=== PATIENT | female | born 1990 | race African-American/Black ===

== ENCOUNTER 2024-03-06 03:24 | Emergency (ER) | payer MEDICAID ==
[~2024-03-06] VITALS: Ht 177.8 cm; Wt 78.0 kg
[2024-03-06 03:37] VITALS: BP 118/77; TEMP 98.8; O2SAT 100
[2024-03-06] MEDS: PREDNISONE 20MG TABLET PO ONE (04:10)
[2024-03-06 04:43] VITALS: PULSE 98; RESP 20; O2SAT 99
[2024-03-06] MEDS: ALBUTEROL (0.083%) 2.5MG/3ML NEB HHN ONE (04:43)
[2024-03-06 05:02] LABS: BASOPHILS % 0.8 % (0.0-2.0); DIFFERENTIAL COMMENT 0; EOSINOPHILS % 1.7 % (0.0-5.0); HEMATOCRIT. 43.3 % (36.0-48.0); HEMOGLOBIN. 14.8 g/dL (12.0-16.0); LYMPHOCYTES % 14.3 % (20.0-50.0); MEAN CORPUSCULAR HEMOGLOBIN 33.2 pg (28.0-32.0); MEAN CORPUSCULAR HGB CONC 34.1 g/dL (31.0-37.0); MEAN CORPUSCULAR VOLUME 97.5 fL (81.0-99.0); MONOCYTES % 7.2 % (2.0-8.0); PLATELET 180 x1000/uL (130-400); RED BLOOD CELL COUNT 4.44 mill/uL (4.2-5.4); RED CELL DISTRIBUTION WIDTH 12.6 % (11.6-14.6); WHITE BLOOD COUNT 6.8 x1000/uL (4.5-11.0)
[2024-03-06 05:11] LABS: CALCIUM 9.9 mg/dL (8.7-10.4); CARBON DIOXIDE 26 mEq/L (21-32); CHLORIDE 103 mEq/L (98-107); POTASSIUM 3.8 mEq/L (3.5-5.1); SODIUM 137 mEq/L (136-145)
[2024-03-06 05:18] LABS: CREATININE 0.9 mg/dL (0.6-1.0); GLUCOSE 95 mg/dL (70-105); UREA NITROGEN BLOOD 5 mg/dL (9-23)
[2024-03-06 05:39] LABS: TROPONIN I HIGH SENSITIVITY < 4 ng/L (3.0-34)
[2024-03-06] MEDS ORDERED: P50 MT (05:46)
[2024-03-06] MEDS ORDERED: ALBU18HF2 IH (05:46)
== END 2024-03-06 08:54 | disposition home or self-care (01) ==
LOC: ER 03:24
DX: R07.89 Other chest pain (principal)
CPT/HCPCS: 80048; 81025; 85025; 85379; 84484; 36415; 71045; 71275; 94640; 99285; J7512; Z7610 ×4